=== PATIENT | female | born 1980 | race Caucasian/White ===

== ENCOUNTER 2024-10-27 11:15 | Emergency (ER) | payer OTHER, SELFPAY ==
[2024-10-27 11:17] VITALS: BP 159/99; PULSE 111; RESP 16; TEMP 37.1; O2SAT 97
[2024-10-27 11:20] VITALS: BMI 47.0
--- NOTE | 2024-10-27 11:38 | RAD_ITS ---
PROCEDURE: CHEST PA AND LATERAL 10/27/2024 REASON FOR EXAM: CHEST PAIN TECHNIQUE: CHEST PA AND LATERAL COMPARISON: None FINDINGS: The lungs are expanded. There is no demonstrated parenchymal abnormality. There is no demonstrated pleural abnormality. Normal heart and pericardium. Normal mediastinum and tennille. Normal visualized pulmonary arteries. Normal visualized aortic arch and descending thoracic aorta. Normal visualized thoracic spine. Normal visualized ribs, clavicles, and shoulders. There is no demonstrated abnormality of the visualized soft tissue structures of the upper abdomen. RAD/Chest PA and Lateral IMPRESSION: Normal x-ray examination of the chest. Reading [facility]
--- NOTE | 2024-10-27 11:38 | EKG12_ITS ---
Test Reason : CP X 5 DAYS Blood Pressure : */* mmHG Vent. Rate : 97 BPM Atrial Rate : 97 BPM P-R Int : 172 ms QRS Dur : 80 ms QT Int : 350 ms P-R-T Axes : 44 9 47 degrees QTcB Int : 444 ms Sinus rhythm with Premature ventricular complexes or Fusion complexes Otherwise normal ECG Confirmed by CHRISTOPHER REEDER, EVITA ([id number]), restaurant expeditor FAUSTINO CHAN ([id number]) on 10/28/2024 11:02:51 AM Referred By: ALISON Confirmed By: EVITA WHITE MD
--- NOTE | 2024-10-27 11:38 | EKG12_ITS ---
Test Reason : CP X 5 DAYS Blood Pressure : */* mmHG Vent. Rate : 97 BPM Atrial Rate : 97 BPM P-R Int : 172 ms QRS Dur : 80 ms QT Int : 350 ms P-R-T Axes : 44 9 47 degrees QTcB Int : 444 ms Sinus rhythm with Premature ventricular complexes or Fusion complexes Otherwise normal ECG Confirmed by CHRISTOPHER REEDER, EVITA ([id number]), associate editor FAUSTINO CHAN ([id number]) on 10/28/2024 11:02:51 AM Referred By: ALISON Confirmed By: EVITA WHITE MD
--- NOTE | 2024-10-27 11:38 | RAD_ITS ---
PROCEDURE: CHEST PA AND LATERAL 10/27/2024 REASON FOR EXAM: CHEST PAIN TECHNIQUE: CHEST PA AND LATERAL COMPARISON: None FINDINGS: The lungs are expanded. There is no demonstrated parenchymal abnormality. There is no demonstrated pleural abnormality. Normal heart and pericardium. Normal mediastinum and tennille. Normal visualized pulmonary arteries. Normal visualized aortic arch and descending thoracic aorta. Normal visualized thoracic spine. Normal visualized ribs, clavicles, and shoulders. There is no demonstrated abnormality of the visualized soft tissue structures of the upper abdomen. RAD/Chest PA and Lateral IMPRESSION: Normal x-ray examination of the chest. Reading [facility]
--- NOTE | 2024-10-27 11:40 | ED.VIS.CHEST ---
HPI <KERMIT Chapin - Last Filed: 10/27/24 14:51> History of Present Illness Chief Complaint: Chest Pain Narrative Narrative: 43-year-old female past medical history of hypertension currently on no medications presents with chest pain. Over the last 5 days she has had midsternal chest pressure. It is constant and sometimes radiates to the left jaw and left shoulder. On day 2 and 3 of symptoms she states the pain was more intense around 7/10 and would take the wind out of her. She felt nauseated without vomiting. It subsided today to intermittently there at 2 out of 10 but when she mentioned it to her boss she advised her to come in. Patient checks her vital signs at work and states her normal heart rate is around 100 t0 110 but during the episodes of chest pain it got as high as 140. She was prescribed blood pressure medication a few years ago but never took it. She vapes. She has no personal history of CAD or DVT/PE. She has no recent surgery or travel, leg pain or swelling, cough or hemoptysis, or hormone use. PFSH <KERMIT Chapin - Last Filed: 10/27/24 14:51> [facility] Medical History (Updated 10/27/24 @ 14:42 by KERMIT Chapin) TIA (transient ischemic attack) Allergy/AdvReac Type Severity Reaction Status Date / Time Penicillins (PCN) Allergy Mild PT UNSURE Verified 10/27/24 11:17 OF REACTION Social History Smoking Status: Current every day smoker tobacco type: e-cigarettes ROS <KERMIT Chapin - Last Filed: 10/27/24 14:51> ROS ED ROS Narrative Constitutional: Negative for fever, chills, malaise. CVS: Positive for chest pain. No palpitations or syncope. Respiratory: Negative for shortness of breath, cough. GI: Positive for nausea. No abdominal pain or vomiting. EXAM <KERMIT Chapin - Last Filed: 10/27/24 14:51> Physical Exam Narrative Exam Narrative: CONST: Patient sitting in no acute distress. EYES: Normal inspection. ENT: Normal inspection, moist mucous membranes. NECK: Normal inspection. RESP: No respiratory distress, CTAB. CVS: Slightly tachycardic with regular rhythm, no murmur, no gallop. ABD: Soft and nontender, no guarding or rebound, nondistended. SKIN: Color normal, no rash, warm, dry, intact. EXTREMITIES: Normal appearance, no pedal edema. NEURO: Alert and answering questions appropriately. PSYCH: Normal affect. Const Vital Signs: 10/27/24 11:17 10/27/24 11:38 10/27/24 12:16 Temperature 98.7 F 97.5 F L Temperature Source Oral Oral Pulse Rate 111 H 85 Respiratory Rate 16 25 H Blood Pressure 159/99 H 144/87 H Blood Pressure Mean 119 106 Pulse Ox 97 100 Oxygen Delivery Method Room Air Room Air Room Air 10/27/24 13:00 10/27/24 14:00 10/27/24 14:57 Temperature 97.6 F L 97.7 F L Temperature Source Oral Pulse Rate 76 75 102 H Respiratory Rate 15 16 17 Blood Pressure 156/92 H 152/96 H 139/107 H Blood Pressure Mean 113 114 117 Pulse Ox 99 100 93 Oxygen Delivery Method Room Air Room Air <Dr. Slick Maravilla DO - Last Filed: 10/27/24 23:04> Physical Exam Const Vital Signs: 10/27/24 11:17 10/27/24 11:38 10/27/24 12:16 Temperature 98.7 F 97.5 F L Temperature Source Oral Oral Pulse Rate 111 H 85 Respiratory Rate 16 25 H Blood Pressure 159/99 H 144/87 H Blood Pressure Mean 119 106 Pulse Ox 97 100 Oxygen Delivery Method Room Air Room Air Room Air 10/27/24 13:00 10/27/24 14:00 10/27/24 14:57 Temperature 97.6 F L 97.7 F L Temperature Source Oral Pulse Rate 76 75 102 H Respiratory Rate 15 16 17 Blood Pressure 156/92 H 152/96 H 139/107 H Blood Pressure Mean 113 114 117 Pulse Ox 99 100 93 Oxygen Delivery Method Room Air Room Air <KERMIT Chapin - Last Filed: 10/27/24 14:51> Heart Score History: Moderately Suspicious Age: </= 45 years Risk Factors: >/= 3 Risk Factors or History of CAD Score: 3 <Dr. Slick Maravilla DO - Last Filed: 10/27/24 23:04> Heart Score Score: 3 MDM <KERMIT Chapin - Last Filed: 10/27/24 14:51> MDM MDM Narrative Medical decision making narrative: History gathered from: Patient and family Differential includes but not limited to ACS, PE, GERD 43-year-old female presents with 5 days of intermittent chest pain. The pain has significantly lessened today but she came in on the prompting of coworker. She appears well and nontoxic. She was hypertensive at 150/90s, with otherwise normal vital signs. Normal cardiopulmonary exam. Abdomen soft and nontender. Moving all extremities neurovascularly intact. CBC shows mild anemia at 11.8 with no prior for comparison but patient states she is aware of being anemic. BMP unremarkable. EKG is nonischemic and troponin x 2 are normal. D-dimer is negative. CXR shows no acute process. Patient's heart score is 3. She states she has had a stress test within the last 2 years that was normal. I recommended she follow-up with her primary care doctor to address her high blood pressure and for further cardiac evaluation. She should return if symptoms worsen. She was comfortable with this plan and discharged in stable condition. History & Record Review Discussion w/independent historian: Patient Lab Data Attestation: I reviewed the patient's lab results. Labs: Laboratory Results - last 24 hr 10/27/24 10/27/24 11:35 13:36 WBC 9.8 RBC 4.87 Hgb 11.8 L Hct 37.5 MCV 77.0 L MCH 24.2 L MCHC 31.5 L RDW Std Deviation 41.6 RDW Coeff of Piter 15.0 H Plt Count 406 MPV 9.9 Immature Gran % (Auto) 0.300 Neut % (Auto) 59.8 Lymph % (Auto) 30.3 [place] % (Auto) 7.6 Eos % (Auto) 1.3 Baso % (Auto) 0.7 Absolute Neuts (auto) 5.9 Absolute Lymphs (auto) 2.98 Nucleated RBC % 0 D-Dimer Quant (PE/DVT) 0.27 Sodium 140 Potassium 3.9 Chloride 107 Carbon Dioxide 20.6 L Anion Gap 12 BUN 11 Creatinine 0.87 Estim Creat Clear Calc 113.67 Est GFR (MDRD) Non-Af 86 BUN/Creatinine Ratio 12.8 Glucose 95 Calcium 9.3 Troponin T High Sens 7 Troponin T Hi Sens 2 Hr < 6 Radiography Diagnostic Testing: Clinical Impression(s) from Imaging Studies Chest X-Ray 10/27/24 11:38 IMPRESSION: Normal x-ray examination of the chest. Reading Location: [place] [address] ED attending interpretation of 2-view chest x-ray shows normal heart size, no acute infiltrate, edema, or effusion. EKG Initial EKG: Attestation: I personally reviewed and interpreted this EKG as follows: Interpretation: Sinus Rhythm and No Acute Injury Pattern Comments: Sinus rhythm at 97 bpm with premature ventricular complexes or fusion complexes Normal axis, no acute ischemic changes Prior EKG tracings: not available for review <Dr. Slick Maravilla, DO - Last Filed: 10/27/24 23:04> [facility] MDM Narrative Medical decision making narrative: History gathered from: Patient and family Differential includes but not limited to ACS, PE, GERD 43-year-old female presents with 5 days of intermittent chest pain. The pain has significantly lessened today but she came in on the prompting of coworker. She appears well and nontoxic. She was hypertensive at 150/90s, with otherwise normal vital signs. Normal cardiopulmonary exam. Abdomen soft and nontender. Moving all extremities neurovascularly intact. CBC shows mild anemia at 11.8 with no prior for comparison but patient states she is aware of being anemic. BMP unremarkable. EKG is nonischemic and troponin x 2 are normal. D-dimer is negative. CXR shows no acute process. Patient's heart score is 3. She states she has had a stress test within the last 2 years that was normal. I recommended she follow-up with her primary care doctor to address her high blood pressure and for further cardiac evaluation. She should return if symptoms worsen. She was comfortable with this plan and discharged in stable condition. Supervisory Physician Note Patient was seen and examined with the Advanced Practice Provider. Nursing notes and vital signs have been reviewed. Pertinent old records have been reviewed. I agree with the essential elements of the TIARA's history, physical exam, assessment, and plan. The differential diagnosis and management options were discussed with the TIARA. I participated in determining and agree with the management, procedures, final impression and disposition as documented. See changes noted by me. Please see addendum or separate note for any additional details. 43-year-old female with past medical history of HTN but noncompliant with medication, tobacco abuse presents for evaluation of chest pain. Chest pain has been ongoing for several days and improving today however does advise her to come to the emergency department. Gen: A&O x3, NAD Head: Normocephalic, atraumatic Eyes: No sclera icterus, conjunctiva clear ENT: Moist mucous membranes Neck: Trachea midline, No JVD CV: RRR, no murmurs, no peripheral edema Resp: Lungs CTA BL, no w/r/c GI: Abd soft, non-distended, non-tender, no r/r/g Musc: Full ROM, no deformity Skin: Warm, dry Neuro: Alert, oriented, grossly intact, sensation intact Psych: Cooperative, appropriate mood and affect Differential diagnosis includes but is not limited to myofascial spasm, GERD, ACS, PE, electrolyte abnormality, arrhythmia, anemia, hypertension urgency EKG was personally reviewed and interpreted by ky, ED physician. Normal sinus rhythm with PVCs. Heart rate 97. No acute ischemic changes. Chest x-ray was personally reviewed and interpreted by ky, ED physician. No pneumonia, effusion, cardiomegaly, pneumothorax. CBC without leukocytosis. Patient has anemia of 11.8. Do not have previous labs to compare to. Platelet count unremarkable. BMP without significant electrolyte abnormality or CAMPBELL. D-dimer unremarkable. Troponin x 2 negative. Patient's heart score is a 3 which places her at low risk for ACS. Chest pain has been ongoing for several days and improving. She states she had a stress test within the last 2 years that was normal. At this point in time, no clear etiology for her chest pain however patient stable to discharge home. Patient to follow-up with PCP for her HTN and anemia. Return back to ED if symptoms change or worsen. Patient discharged home. Impression: 1. Chest pain, unclear etiology 2. HTN with history of HTN and noncompliant with medication 3. Anemia Lab Data Labs: Laboratory Results - last 24 hr 10/27/24 10/27/24 11:35 13:36 WBC 9.8 RBC 4.87 Hgb 11.8 L Hct 37.5 MCV 77.0 L MCH 24.2 L MCHC 31.5 L RDW Std Deviation 41.6 RDW Coeff of Piter 15.0 H Plt Count 406 MPV 9.9 Immature Gran % (Auto) 0.300 Neut % (Auto) 59.8 Lymph % (Auto) 30.3 [place] % (Auto) 7.6 Eos % (Auto) 1.3 Baso % (Auto) 0.7 Absolute Neuts (auto) 5.9 Absolute Lymphs (auto) 2.98 Nucleated RBC % 0 D-Dimer Quant (PE/DVT) 0.27 Sodium 140 Potassium 3.9 Chloride 107 Carbon Dioxide 20.6 L Anion Gap 12 BUN 11 Creatinine 0.87 Estim Creat Clear Calc 113.67 Est GFR (MDRD) Non-Af 86 BUN/Creatinine Ratio 12.8 Glucose 95 Calcium 9.3 Troponin T High Sens 7 Troponin T Hi Sens 2 Hr < 6 Radiography Diagnostic Testing: Clinical Impression(s) from Imaging Studies Chest X-Ray 10/27/24 11:38 IMPRESSION: Normal x-ray examination of the chest. Reading Location: [place] [address] Discharge Plan Triage Chief Complaint: Chest Pain ED Midlevel Provider: Genna Worley ED Provider: Slick Marvailla Dx/Rx/DC Orders Clinical Impression: Chest pain Instructions: ED Chest Pain, Uncertain Cause Primary Care Provider: Evelin Lang NP Referrals: Evelin Lang NP, [employer] [Primary Care Provider] - Activity Restrictions/Additional Instructions: Thanks for letting us take care of you today. All of your testing was normal and rule out heart attacks and blood clots. I am not sure what caused your pain. However, I do strongly recommend you follow-up with your primary care doctor for further cardiac testing as you have a family history, history of high blood pressure, and vaping, and your weight will put you at risk for heart problems. Return to the ER symptoms worsen. Print Language: Irish Disposition Disposition: Home, Self Care Discharge Date/Time: 10/27/24 15:00
[2024-10-27 11:46] LABS: Hematocrit 37.5 % (37-47); Hemoglobin 11.8 g/dL (12.0-15.0); Immature Granulocytes Count 0.030 X10^3/uL (0.0-0.0); Mean Corp Hgb Conc 31.5 g/dL (32-36); Mean Corpuscular Volume 77.0 fL (81-99); Mean Platelet Vol. 9.9 fl (6.2-12.0); NRBC Flagged by Analyzer 0 % (0-5); Platelet Count 406 K/mm3 (150-450); RBC Distribution Width CV 15.0 % (11.6-14.6); RBC Distribution Width SD 41.6 fl (35.1-43.9); Red Blood Count 4.87 M/mm3 (4.2-5.4); White Blood Count 9.8 K/mm3 (4.4-11.0)
[2024-10-27 11:59] LABS: D-Dimer Quantitative (DVT/PE) 0.27 FEU/ug/m (0.27-0.49)
[2024-10-27 12:16] VITALS: BP 144/87; PULSE 85; RESP 25; TEMP 36.4; O2SAT 100
[2024-10-27] MEDS: 0.9% Normal Saline (1000mL) 1,000 ML 999 ML IV (12:17)
[2024-10-27 12:36] LABS: Anion Gap 12 (5-15); BUN 11 mg/dL (4-19); BUN/Creat Ratio 12.8 RATIO (10-20); Calcium,Total 9.3 mg/dL (7.6-11.0); Carbon Dioxide 20.6 mmol/L (21.0-32.0); Chloride 107 mmol/L (98-108); Estimated Creatinine Clearance 113.67 ml/min (50-250); Glucose 95 mg/dL (70-99); Potassium 3.9 mmol/L (3.3-5.1); Troponin T High Sensitivity 7 ng/L (<=14)
[2024-10-27 13:00] VITALS: BP 156/92; PULSE 76; RESP 15; TEMP 36.4; O2SAT 99
[2024-10-27 14:00] VITALS: BP 152/96; PULSE 75; RESP 16; O2SAT 100
[2024-10-27 14:30] LABS: Troponin T High Sens 2 HR < 6 ng/L (<=14)
[2024-10-27 14:57] VITALS: BP 139/107; PULSE 102; RESP 17; TEMP 36.5; O2SAT 93
== END 2024-10-27 15:00 | disposition home or self-care (01) ==
PROVIDERS: Physician Assistant; Emergency Provider Surgery; PCP Nurse Practitioner Family; Visit Provider Surgery
DX: R07.9 Chest pain, unspecified (principal); I10 Essential (primary) hypertension; D64.9 Anemia, unspecified; F17.290 Nicotine dependence, other tobacco product, uncomplicated; Z86.73 Personal history of transient ischemic attack (TIA), and cerebral infarction without residual deficits
CPT/HCPCS: 71046; 80048; 84484; 85025; 85379; 93005; 99284; A4216